=== PATIENT | male | born 1960 | race Caucasian/White ===

== ENCOUNTER → 2017-10-24 | Outpatient (CLI) | payer OTHER | LOC: CLAB 08:49 | PROVIDERS: ATTEND Family Medicine | DX: M50.323 Other cervical disc degeneration at C6-C7 level (principal); M50.33 Other cervical disc degeneration, cervicothoracic region; S13.140A Subluxation of C3/C4 cervical vertebrae, initial encounter; S13.150A Subluxation of C4/C5 cervical vertebrae, initial encounter | CPT/HCPCS: 72040-PO ==